=== PATIENT | female | born 2000 | race American Indian/Alaskan Native ===

== ENCOUNTER 2021-10-23 21:09 | Emergency (ER) | payer SELFPAY | END 2021-10-25 12:30 | disposition left against medical advice (07) | LOC: ED 21:09 | DX: Z04.1 Encounter for examination and observation following transport accident (principal); Z53.21 Procedure and treatment not carried out due to patient leaving prior to being seen by health care provider; V89.2XXA Person injured in unspecified motor-vehicle accident, traffic, initial encounter; Y93.89 Activity, other specified; Y92.89 Other specified places as the place of occurrence of the external cause; Y99.8 Other external cause status ==

== ENCOUNTER 2021-10-24 13:04 | Emergency (ER) | payer SELFPAY ==
[2021-10-24 14:28] VITALS: BP 132/80
--- NOTE | 2021-10-24 15:15 | Cat Scan Report ---
CT facial bones wo con, CT cervical spine wo con INDICATION: facial swelling. TECHNIQUE: CT face, and cervical spine without contrast. All CT scans at this location are performed using CT dose reduction for ALARA by means of automated exposure control. COMPARISON: None. FINDINGS: Face: Facial bones:Facial bones are intact without fracture. Mandibular condyles are well-seated within the glenoid fossa of the temporal mandibular joint. Sinuses: Paranasal sinuses and mastoid air cells are essentially clear. Orbits: Globes are intact. Additional findings:No other significant abnormality. Cervical: Alignment: Reversal lordosis with apex at C5-C6. Vertebrae: No fracture. Vertebral body heights are preserved. C1 and C2 are congruent. Atlantooccipi eli joint is maintained. Spondylolysis: No significant spondylosis. Soft tissues: No prevertebral soft tissue thickening. Additional findings: No periapical lucencies. No significant additional findings. IMPRESSION: 1. No facial bone fracture. 2. No cervical spine fracture. Signer Name: Collin Griffin MD Signed: 10/24/2021 3:11 PM Workstation Name: [id number]
[2021-10-24] MEDS ORDERED: KETOROLAC 10 MG TAB PO ONE (17:47)
[2021-10-24] MEDS ORDERED: CYCLOBENZAPRINE 10 MG TAB PO ONE (17:47)
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
== END 2021-10-25 12:30 | disposition home or self-care (01) ==
LOC: ED 13:04
DX: S00.12XA Contusion of left eyelid and periocular area, initial encounter (principal); M54.2 Cervicalgia; V89.2XXA Person injured in unspecified motor-vehicle accident, traffic, initial encounter; Y93.89 Activity, other specified; Y92.89 Other specified places as the place of occurrence of the external cause; Y99.8 Other external cause status
CPT/HCPCS: 70486; 72125; 99283